=== PATIENT | male | born 1975 | race American Indian/Alaskan Native ===

== ENCOUNTER 2022-08-22 13:54 | Inpatient (IN) | payer BC ==
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
[2022-08-22] MEDS ORDERED: niCARdipine DRIP 40 MG/200 ML BAG IV ONE (14:11)
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
--- NOTE | 2022-08-22 14:35 | XRay Report ---
CHEST 1 VIEW 08/22/2022 2:23 PM INDICATION / CLINICAL INFORMATION: cva. COMPARISON: None available. FINDINGS: SUPPORT DEVICES: None. HEART / MEDIASTINUM: No significant abnormality. LUNGS / PLEURA: No significant pulmonary or pleural abnormality. No pneumothorax. ADDITIONAL FINDINGS: No significant additional findings. IMPRESSION: 1. No acute findings. Signer Name: Julián Rebollar MD Signed: 08/22/2022 2:31 PM Workstation Name: [id number]
--- NOTE | 2022-08-22 14:45 | Cat Scan Report ---
CT head/brain wo con INDICATION: Stroke symptoms. TECHNIQUE: CT head. All CT scans at this location are performed using CT dose reduction for ALARA by means of automated exposure control. COMPARISON: None. FINDINGS: Intracranial: Solorzano-white matter differentiation is maintained. No intracranial hemorrhage. No extra a xial collection. No hydrocephalus. No herniation. Sinuses: Significant mucosal thickening seen within the left sphenoid sinus and mild mucosal thickeni ng in the right sphenoid sinus and maxillary sinuses. Air-fluid levels improving secretions present. Orbits: Globes are intact. Calvarium: No acute fracture. IMPRESSION: 1. No acute intracranial abnormality. 2. Sinus disease this features which could suggest acute sinusitis in the correct clinical setting. I informed the E.D doctor who is taking care of this patient via telephone at 1:38. . Signer Name: Gaurav Beaver MD Signed: 08/22/2022 2:41 PM Workstation Name: [id number]
--- NOTE | 2022-08-22 15:46 | Emergency Department Report ---
Blank Doc - Documentation Documentation: [facility] Consult Note # Demographics Consult Type: Acute Stroke Level 1 (0-4.5 hrs) Patient Location: Emergency Room First Name: Raymon Last Name: Amaris Date of : 09/13/1974 Age: 47 Gender: Male Facility: [facility] Time of Initial Page ( Time): 08/22/2022, 14:03 Time of Return Call ( Time): 08/22/2022, 14:04 # HPI History: At 1350 was [address] and developed right face arm and left leg numbness. There is no weakness on exam. He had a similar less severe episode a few months ago that he didn't seek medical care for. # Scores Time of exam and NIHSS (): 08/22/2022, 14:35 Level of Consciousness 1a: [0] = Alert; keenly responsive LOC Questions 1b: [0] = Answers both questions correctly LOC Commands 1c: [0] = Performs both tasks correctly Best Gaze 2: [0] = Normal Visual 3: [0] = No visual loss Facial Palsy 4: [0] = Normal symmetrical movements Motor Arm Left 5a: [0] = No drift Motor Arm Right 5b: [0] = No drift Motor Leg Left 6a: [0] = No drift Motor Leg Right 6b: [0] = No drift Limb Ataxia 7: [0] = Absent Sensory 8: [1] = [id number] sensory loss Best Language 9: [0] = No aphasia Dysarthria 10: [0] = Normal Extinction and Inattention 11: [0] = No abnormality NIHSS Total: 1 # Exam SBP: 232 DBP: 134 # H-FH-SH Past Medical History: Diabetes hypertension HIV # Assessment Impression: Stroke Mimic crossed arm and leg symptoms not consistent with stroke # Plan Thrombolytic/Intervention: NOT IV Thrombolysis or IA Intervention candidate Thrombolytic/Intraarterial Exclusion: IV thrombolytic and IA intervention considered but not recommended as this patient's symptoms are not clinically consistent with an assumed diagnosis of stroke Target Blood Pressure: ok for BP control, lowering by ~20-25% now Imaging: (urgency: STAT): CT Angiogram Head and CT Angiogram Neck AND call back with results if abnormal Imaging: (urgency: routine): MRI Brain with AND without contrast Therapy/Evaluation: PT/OT evaluation Other: If patient has any neurological deterioration please call me back immediately I have discussed my recommendations with the referring provider # Logistics Telemedicine: Interactive 2 way audio and visual telecommunication technology was utilized during this visit # Demographics First Name: Raymon Last Name: Amaris Facility: [facility]
[2022-08-22 15:52] LABS: INR 0.82 (0.87-1.13)
[2022-08-22 15:53] LABS: Partial Thromboplastin Time 24.6 Sec. (24.2-36.6)
[2022-08-22 16:04] LABS: Basophils % (Auto) 0.6 % (0.0-1.8); Eosinophils % (Auto) 2.5 % (0.0-4.3); Hematocrit 37.6 % (35.5-45.6); Hemoglobin 12.8 gm/dl (11.8-15.2); Lymphocytes # (Auto) 1.9 K/mm3 (1.2-5.4); Lymphocytes % (Auto) 44.2 % (13.4-35.0); Mean Corpuscular HGB Conc 34 % (32-34); Mean Corpuscular Volume 81 fl (84-94); Monocytes % (Auto) 7.1 % (0.0-7.3); Platelet Count 212 K/mm3 (140-440); Red Blood Count 4.66 M/mm3 (3.65-5.03); Red Cell Distribution Width 14.1 % (13.2-15.2)
[2022-08-22 16:05] LABS: Eosinophils # (Auto) 0.1 K/mm3 (0.0-0.4); Monocytes # (Auto) 0.3 K/mm3 (0.0-0.8)
[2022-08-22 16:34] LABS: Bilirubin,Urine NEG (Negative); Blood,Urine NEG (Negative); Color,Urine Yellow (Yellow); Protein,Urine <15 mg/dL mg/dL (Negative)
[2022-08-22 16:37] LABS: Mucus,Urine FEW /HPF; RBC,Urine < 1.0 /HPF (0.0-6.0); Urobilinogen,Urine < 2 mg/dL (<2.0); WBC,Urine < 1.0 /HPF (0.0-6.0)
[2022-08-22 16:47] LABS: Amphetamine Screen,Urine Negative; Benzodiazepines Screen,Urine Negative; Cannabinoid Screen,Urine Negative; Cocaine Screen,Urine Negative; Methadone Screen,Urine Negative; Opiate Screen,Urine Negative
--- NOTE | 2022-08-22 17:39 | Cat Scan Report ---
CT angio neck INDICATION / CLINICAL INFORMATION: 46 years Male; stroke symptoms 100ml of [id number]. TECHNIQUE: Thin cut axial images obtained through the head during IV bolus contrast administration. S agittal, coronal, and 3 plane MIP reconstructions performed by the technologist. NASCET type criteria used evaluate stenoses. All CT scans at this location are performed using CT dose reduction for ALAR A by means of automated exposure control. COMPARISON: None available. FINDINGS: CAROTID ARTERIES: There is no CT evidence of significant stenosis involving carotid arteries by NASCE T criteria. The carotid bifurcations are widely patent. VERTEBRAL ARTERIES: The left vertebral artery arises directly from the aortic arch, a developmental v ariant. There is no significant focal stenosis involving vertebral arteries. The vessel moran appear to demonstrate fairly smooth contours. ARCH: The arch vessels otherwise appear unremarkable without significant focal narrowing. ADDITIONAL FINDINGS: Remainder of the surrounding soft tissues are grossly normal. IMPRESSION: There is no CTA evidence of significant stenosis involving cervical carotid or vertebral arteries by NASCET to criteria. Signer Name: Markell Honeycutt MD Signed: 08/22/2022 5:35 PM Workstation Name: [id number]
--- NOTE | 2022-08-22 17:44 | Cat Scan Report ---
CT angio head INDICATION / CLINICAL INFORMATION: 46 years Male; stroke symptoms 100ml of [id number]. TECHNIQUE: Thin cut axial images obtained through the head during IV bolus contrast administration. S agittal, coronal, and 3 plane MIP reconstructions performed by the technologist. NASCET type criteria used evaluate stenoses. Automated exposure control utilized for radiation reduction purposes. COMPARISON: None available. FINDINGS: INTERNAL CAROTID ARTERIES: There is no significant stenosis involving intracranial ICAs by NASCET cri teria. VERTEBROBASILAR SYSTEM: There is mild calcification involving intracranial vertebral arteries. Howeve r, there is no significant focal narrowing of the vertebral basilar system. CEREBRAL ARTERIES: The proximal cerebral arteries and adjacent segments appear to demonstrate appropr iate caliber without CT evidence of large vessel occlusion. ANEURYSM: None identified. ADDITIONAL FINDINGS: There is moderate mucosal thickening within the left sphenoid sinus. Milder thic kening is noted within the maxillary sinuses with air-fluid level on the left. IMPRESSION: There is no clear CT evidence of large vessel occlusion involving intracranial vessels amenable to en dovascular treatment and correlation would be needed given the emergent presentation of unspecified " stroke symptoms". Signer Name: Markell Honeycutt MD Signed: 08/22/2022 5:39 PM Workstation Name: [id number]
[2022-08-22] MEDS ORDERED: ASPIRIN 325 MG TAB PO ONE (17:51)
--- NOTE | 2022-08-22 17:57 | History and Physical Report ---
History of Present Illness Chief complaint: My head started hurting I feel weak History of present illness: 46 YO Male with HIV disease, HTN presents to ED for evaluation. Patient reports "my head started hurting and I felt somewhat weak". Patient states he was in his usual state of health and was driving at approximately 1350 hrs. when he experienced a sudden onset of headache, weakness, blurred vision, face numbness and tingling and left leg numbness. Patient transported to [facility] via private vehicle for further care and evaluation of the aforementioned symptoms. The patient was seen and evaluated emergency department. All lab and imaging studies reviewed. Patient found to have a blood pressure of 232/134 mmHg which is consistent with hypertensive emergency. Patient also found to have clinical symptoms consistent with press syndrome. Patient admitted to [facility] and initiated on IV antihypertensive therapy. Patient denies fever, chills, chest pain, palpitation, productive cough, skin rash, recent contact, known exposure to COVID-19. No prior admission for review. No medication listed at time of a dmission for reconciliation. Vascular planning conducted in ED. Past History Past Medical History: HIV/AIDS Past Surgical History: No surgical history, Other (Reviewed) Social history: single Family history: hypertension Medications and Allergies Allergies Allergy/AdvReac Type Severity Reaction Status Date / Time ciprofloxacin [From Cipro] Allergy Itching Verified 08/22/22 14:02 Review of Systems Constitutional: no weight loss, no fever, no chills, no sweats Ears, nose, mouth and throat: no ear pain, no tinnitis, no decreased hearing, no nose pain, no nasal congestion Cardiovascular: no chest pain, no syncope Respiratory: no cough, no hemoptysis, no shortness of breath Gastrointestinal: no vomiting, no diarrhea Genitourinary Male: no flank pain, no discharge, no urinary hesitancy, no nocturia Rectal: no pain, no incontinence, no bleeding Musculoskeletal: no neck stiffness, no shooting arm pain, no low back pain, no leg numbness/tingling Integumentary: no rash, no redness, no wounds, no boils Neurological: weakness, double vision Psychiatric: no anxiety, no change in sleep habits, no sleep disturbances, no insomnia, no hypersomnia Endocrine: no polyphagia, no polydipsia, no nocturia Hematologic/Lymphatic: no easy bruising, no easy bleeding Allergic/Immunologic: no urticaria, no allergic rhinitis, no wheezing Exam - Constitutional Vitals: Temp Pulse Resp BP Pulse Ox 98.9 F 87 17 165/110 97 08/22/22 13:57 08/22/22 17:00 08/22/22 17:00 08/22/22 17:00 08/22/22 14:36 General appearance: Present: mild distress, obese - EENT Eyes: Present: PERRL ENT: hearing intact, clear oral mucosa - Neck Neck: Present: supple, normal ROM - Respiratory Respiratory effort: normal Respiratory: bilateral: CTA - Cardiovascular Heart Sounds: Present: S1 & S2. Absent: rub, click - Extremities Extremities: pulses symmetrical, No edema Peripheral Pulses: within normal limits - Abdominal General gastrointestinal: Present: soft, non-tender, non-distended, normal bowel sounds Male genitourinary: Present: normal - Integumentary Integumentary: Present: clear, warm, dry - Musculoskeletal Musculoskeletal: gait normal, strength equal bilaterally - Psychiatric Psychiatric: appropriate mood/affect, intact judgment & insight - Neurologic Neurologic: CNII-XII intact, moves all extremities Results - Labs CBC & Chem 7: 08/22/22 14:47 08/22/22 14:47 Labs: Abnormal lab results 08/22/22 08/22/22 Range/Units 14:47 14:47 WBC 4.2 L (4.5-11.0) K/mm3 MCV 81 L (84-94) fl MCH 27 L (28-32) pg Lymph % (Auto) 44.2 H (13.4-35.0) % INR 0.82 L (0.87-1.13) Thrombin Time 15.0 L (15.1-19.6) Sec. Assessment and Plan - Patient Problems (1) Hypertensive emergency Current Visit: Yes Status: Acute Plan to address problem: IV antihypertensive therapy, monitor blood pressure every shift, IMCU admission, Cardene drip, continue medical management. (2) PRES (posterior reversible encephalopathy syndrome) Current Visit: Yes Status: Acute Plan to address problem: CT scan head, supportive care, neuro check, blood pressure control. Continue medical management. (3) Obesity hypoventilation syndrome Current Visit: Yes Status: Acute Plan to address problem: Balanced diet, increase physical activity discharge, outpatient pulmonary follow-up for sleep study (4) HIV (human immunodeficiency virus infection) Current Visit: No Status: Acute Plan to address problem: Outpatient infectious disease service follow-up, supportive care. (5) DVT prophylaxis Current Visit: Yes Status: Acute Plan to address problem: SCD to bilateral lower extremities while in bed (6) Advance care planning Current Visit: Yes Status: Acute Plan to address problem: Disease education done, care plan discussed, diagnoses discussed, patient is full code, +30 minutes. Patient knowledges understanding and agreement with care plan, +30 minutes (7) Preventative health care Current Visit: Yes Status: Acute Plan to address problem: Patient counseled regarding risk factor reduction, balanced diet, increase physical activity at discharge, outpatient follow-up with primary care physician for all age and risk factor appropriate screening test. +30 minutes.
[2022-08-22] MEDS ORDERED: ACETAMINOPHEN 325 MG TAB PO PRN (18:00)
[2022-08-22 18:30] LABS: Creatine Kinase MB 1.7 ng/mL (0.0-4.0)
[2022-08-22 18:31] LABS: Albumin 4.2 g/dL (3.9-5); Calcium 9.2 mg/dL (8.4-10.2)
[2022-08-22] MEDS ORDERED: oxyCODONE /ACETAMINOPHEN 5-325MG TAB PO PRN (19:00)
[2022-08-22] MEDS ORDERED: HYDROmorphone 0.5 MG/0.5 ML INJ IV PRN (19:00)
[2022-08-22] MEDS ORDERED: ALBUTEROL 2.5 MG/3 ML NEBU IH PRN (20:00)
[2022-08-22 21:44] VITALS: BP 160/100
== END 2022-08-22 23:20 | disposition home or self-care (01) | DRG 304 ==
LOC: ED 13:54 → IMCU 17:59
PROVIDERS: ADMIT Internal Medicine; ATTEND Internal Medicine
DX: I16.1 Hypertensive emergency (principal); I67.83 Posterior reversible encephalopathy syndrome; B20 Human immunodeficiency virus [HIV] disease; E11.9 Type 2 diabetes mellitus without complications; E66.9 Obesity, unspecified; Z68.34 Body mass index [BMI] 34.0-34.9, adult
CPT/HCPCS: 36415; 70450; 70496; 70498; 71045; 80053; 80307; 81001; 82550; 82553; 84484; 85025; 85610; 85670; 85730; 86850; 86900; 86901; G0378; Q9967